=== PATIENT | female | born 1965 | race Two or more races ===

== ENCOUNTER 2021-04-25 18:07 | Emergency (ER) | payer OTHER ==
[~2021-04-25] VITALS: Ht 167.6 cm; Wt 77.6 kg
[~2021-04-25 18:07] MED LIST: CHANTIX1 DOSE-PAC PO; KETO10TA2; MEDROL4 MG PO; NEXIUM40 MG/PACK; PRILOSEC20 MG PO; RELPAX40 MG PO; TOPAMAX50 MG PO; ZANAFLEX2 MG; ZANTAC300 MG PO; ZYRTEC10 M3
[2021-04-25] MEDS ORDERED: OMEPRAZOLE20 MG (18:23)
[2021-04-25] MEDS ORDERED: FENOFIBRATE30 MG (18:24)
[2021-04-25] MEDS ORDERED: PEPCID AC10 MG (18:24)
[2021-04-25] MEDS ORDERED: LIPITOR40 M1 (18:24)
== END 2021-04-25 23:31 | disposition home or self-care (01) ==
LOC: ER 18:07
DX: U07.1 COVID-19 (principal); R53.81 Other malaise

== ENCOUNTER 2021-10-26 10:06 | Emergency (ER) | payer OTHER ==
[~2021-10-26] VITALS: Ht 167.6 cm; Wt 76.2 kg
[~2021-10-26 10:06] MED LIST changes: +FENOFIBRATE30 MG; +LIPITOR40 M1; +OMEPRAZOLE20 MG; +PEPCID AC10 MG
== END 2021-10-26 15:30 | disposition home or self-care (01) ==
LOC: ER 10:06
DX: I80.12 Phlebitis and thrombophlebitis of left femoral vein (principal); R60.0 Localized edema; Z20.822 Contact with and (suspected) exposure to COVID-19

== ENCOUNTER 2021-10-27 17:19 | Inpatient (IN) | payer OTHER ==
[~2021-10-27] VITALS: Ht 167.6 cm; Wt 75.7 kg
[2021-10-29] MEDS ORDERED: FLONASE16 GM (09:39)
[2021-10-29] MEDS ORDERED: MONTELUKAST SOD10 MG (09:40)
[2021-10-29] MEDS ORDERED: DICLOFENAC SODI75 MG (09:40)
[2021-10-29] MEDS ORDERED: ESTRADIOL10 MCG (09:40)
[2021-10-29] MEDS ORDERED: FENOFIBRATE145 MG (09:40)
== END 2021-11-02 18:13 | disposition home or self-care (01) | DRG 300 ==
LOC: ER 17:19 → MEDJ 22:43 → SURG 22:43 → MEDJ 10-30 11:18
PROVIDERS: ADMIT Internal Medicine; ATTEND Internal Medicine
PROC: BW24YZZ Computerized Tomography (CT Scan) of Chest and Abdomen using Other Contrast (ICD-10-PCS; principal; 2021-10-27)
PROC: BW28YZZ Computerized Tomography (CT Scan) of Head using Other Contrast (ICD-10-PCS; 2021-10-29)
DX: I82.412 Acute embolism and thrombosis of left femoral vein (principal); L03.116 Cellulitis of left lower limb; D68.69 Other thrombophilia; I82.432 Acute embolism and thrombosis of left popliteal vein; I82.442 Acute embolism and thrombosis of left tibial vein; E78.49 Other hyperlipidemia; G40.909 Epilepsy, unspecified, not intractable, without status epilepticus; I72.9 Aneurysm of unspecified site
CPT/HCPCS: 70496

== ENCOUNTER 2022-12-24 10:50 | Emergency (ER) | payer OTHER ==
[~2022-12-24] VITALS: Ht 167.6 cm; Wt 86.2 kg
[~2022-12-24 10:50] MED LIST changes: +DICLOFENAC SODI75 MG; +ESTRADIOL10 MCG; +FENOFIBRATE145 MG; +FLONASE16 GM; +MONTELUKAST SOD10 MG
[2022-12-24] MEDS ORDERED: XARELTO20 M1 PO (11:01)
== END 2022-12-24 18:20 | disposition home or self-care (01) ==
LOC: ER 10:50
PROVIDERS: Emergency Medicine
DX: I80.9 Phlebitis and thrombophlebitis of unspecified site (principal); R10.32 Left lower quadrant pain; Z91.040 Latex allergy status
CPT/HCPCS: 36415; 93926; 93971; 96372; 99284; J1885

== ENCOUNTER 2023-01-05 14:33 | Emergency (ER) | payer OTHER ==
[~2023-01-05] VITALS: Ht 160 cm; Wt 77.1 kg
[~2023-01-05 14:33] MED LIST changes: +XARELTO20 M1 PO
== END 2023-01-05 17:41 | disposition home or self-care (01) ==
LOC: ER 14:33
DX: K05.10 Chronic gingivitis, plaque induced (principal); Z91.040 Latex allergy status
CPT/HCPCS: 96372; 99284; J0696

== ENCOUNTER 2023-12-31 18:37 | Emergency (ER) | payer OTHER ==
[~2023-12-31] VITALS: Ht 167.6 cm; Wt 90.7 kg
[2023-12-31] MEDS ORDERED: VITAMIN D310 MCG/1 M PO (18:49)
[2023-12-31] MEDS ORDERED: VITAMIN B-150 MG PO (18:49)
[2023-12-31] MEDS ORDERED: FOLIC ACID20 MG PO (18:49)
[2023-12-31] MEDS ORDERED: ACETAMINOPHEN 500 MG GEL..CAP PO ONE ×2 (19:30→20:08)
[2023-12-31 20:31] LABS: HEMATOCRIT 35.9 % (36.0-45.00); HEMOGLOBIN 12.7 g/dL (12.0-15.00); MEAN CELL VOLUME 86.8 fL (80.00-100.00); MEAN CORPUSCULAR HEMOGLOBIN 30.7 pg (27.00-32.0); MEAN CORPUSCULAR HGB CONC 35.4 g/dl (32.0-36.0); PLATELET COUNT 348 K/uL (150-450); RED BLOOD COUNT 4.14 M/uL (4.00-6.00); RED CELL DISTRIBUTION WIDTH 14.2 % (11.5-14.5)
[2023-12-31 20:54] LABS: ALBUMIN 3.9 gm/dL (3.4-5.0); BILIRUBIN TOTAL 0.33 mg/dL (0.3-1.2); CALCIUM 9.3 mg/dL (8.5-10.1); GFR 57.15; GLOBULINA 3.7 G/DL (2.4-3.5); POTASSIUM 3.85 mEq/L (3.5-5.1); TOTAL PROTEIN 7.6 gm/dL (6.4-8.2)
== END 2023-12-31 22:27 | disposition home or self-care (01) ==
LOC: ER 18:38
PROVIDERS: Nurse Practitioner Family
DX: R55 Syncope and collapse (principal); Z91.040 Latex allergy status; R07.9 Chest pain, unspecified; S09.8XXA Other specified injuries of head, initial encounter; W22.03XA Walked into furniture, initial encounter; Y93.89 Activity, other specified; Y92.89 Other specified places as the place of occurrence of the external cause